=== PATIENT | female | born 1940 | race Caucasian/White ===

== ENCOUNTER → 2018-07-25 | Outpatient (REF) | payer OTHER, MEDICARE ==
[2018-07-25 14:30] LABS: BASO % 0.4 % (0.0-1.0); EOS # 0.3 10^3/uL (0.0-0.50); EOS % 3.2 % (0.0-3.0); HEMATOCRIT 39.2 % (36.0-47.0); HEMOGLOBIN 11.8 g/dl (12.0-15.5); IMMATURE GRANULOCYTE % 0.2 % (0-3.0); LYMPH # 2.2 10^3/uL (1.5-4.5); LYMPH % 23.5 % (24.0-44.0); MEAN CORPUSCULAR HEMOGLOBIN 27.3 pg (27.0-33.0); MEAN CORPUSCULAR HGB CONC 30.1 g/dl (32.0-36.5); MEAN CORPUSCULAR VOLUME 90.7 fl (80.0-96.0); MONO # 0.6 10^3/uL (0.0-0.8); MONO % 6.9 % (0.0-5.0); NEUTROPHILS % 65.8 % (36.0-66.0); PLATELET COUNT, AUTOMATED 261 10^3/uL (150-450); RED BLOOD COUNT 4.32 10^6/uL (4.00-5.40); RED CELL DISTRIBUTION WIDTH 15.6 % (11.5-14.5); WHITE BLOOD COUNT 9.1 10^3/uL (4.0-10.0)
[2018-07-25 15:01] LABS: ERYTHROCYTE SEDIMENTATION RATE 69 mm/hr (0-30)
[2018-07-25 15:12] LABS: ESTIMATED AVERAGE GLUCOSE 131 MG/DL (60-110); HEMOGLOBIN A1c 6.2 %
[2018-07-25 15:39] LABS: ALBUMIN 3.3 GM/DL (3.2-5.2); ALBUMIN/GLOBULIN RATIO 0.65 (1.00-1.93); ALKALINE PHOSPHATASE 84 U/L (45-117); ALT/SGPT 14 U/L (12-78); ANION GAP 11 MEQ/L (8-16); AST/SGOT 43 U/L (7-37); BILIRUBIN,TOTAL 0.4 MG/DL (0.2-1.0); BLOOD UREA NITROGEN 20 MG/DL (7-18); CALCIUM LEVEL 9.1 MG/DL (8.8-10.2); CARBON DIOXIDE LEVEL 29 MEQ/L (21-32); CHLORIDE LEVEL 102 MEQ/L (98-107); CREATININE FOR GFR 0.79 MG/DL (0.55-1.30); FOLATE > 24.0 NG/ML; GLOMERULAR FILTRATION RATE > 60.0 (>39); GLUCOSE, FASTING 84 MG/DL (70-100); POTASSIUM SERUM 4.1 MEQ/L (3.5-5.1); SODIUM LEVEL 142 MEQ/L (136-145); THYROID STIMULATING HORMONE 0.722 uIU/ML (0.358-3.740); TOTAL PROTEIN 8.4 GM/DL (6.4-8.2); VITAMIN B12 LEVEL > 2000.0 PG/ML
[2018-07-27 11:30] LABS: ALBUMIN 3.57 GM/DL (3.29-5.55); ALBUMIN % 42.5 % (55.8-66.1); ALPHA-1-GLOBULIN % 5.9 % (2.9-4.9); ALPHA-2-GLOBULINS % 16.7 % (7.1-11.8); BETA-1-GLOBULINS % 7.2 % (4.7-7.2); BETA-2-GLOBULINS % 7.1 % (3.2-6.5); GAMMA GLOBULIN % 20.6 % (11.1-18.8)
[2018-07-27 11:31] LABS: GAMMA GLOBULINS 1.73 GM/DL (0.65-1.58)
== END ==
LOC: M LABNEURO 13:16
DX: G62.9 Polyneuropathy, unspecified (principal); R25.1 Tremor, unspecified
CPT/HCPCS: 82525

== ENCOUNTER → 2019-04-10 | Outpatient (REF) | payer OTHER, MEDICARE | LOC: M LAB LCGH 14:36 | PROVIDERS: ATTEND Family Medicine | DX: L85.9 Epidermal thickening, unspecified (principal) ==

== ENCOUNTER → 2019-10-12 | Outpatient (REF) | LOC: M LAB LCGH 13:55 | PROVIDERS: ATTEND Orthopaedic Surgery | DX: M24.541 Contracture, right hand (principal); M06.341 Rheumatoid nodule, right hand ==

== ENCOUNTER → 2023-04-21 | Outpatient (REF) | payer OTHER | LOC: M SFHCWOUN 17:42 | PROVIDERS: ATTEND Surgery | DX: L81.9 Disorder of pigmentation, unspecified (principal); L97.222 Non-pressure chronic ulcer of left calf with fat layer exposed; L98.8 Other specified disorders of the skin and subcutaneous tissue ==

== ENCOUNTER 2023-06-23 16:28 | Inpatient (IN) | payer OTHER ==
[~2023-06-23] VITALS: Ht 165.1 cm; Wt 116.2 kg
[2023-06-23] MEDS ORDERED: ACETAMINOPHEN TAB 650MG DOSE (2X325MG) PO PRN (19:30)
[2023-06-23 19:45] VITALS: BP 137/75; TEMP 98.1; O2SAT 95
[2023-06-23 20:25] LABS: HEMATOCRIT 35.5 % (36.0-47.0); HEMOGLOBIN 10.7 g/dl (12.0-15.5); MEAN CORPUSCULAR HEMOGLOBIN 29.9 pg (27.0-33.0); MEAN CORPUSCULAR HGB CONC 30.1 g/dl (32.0-36.5); MEAN CORPUSCULAR VOLUME 99.2 fl (80.0-96.0); PLATELET COUNT, AUTOMATED 248 10^3/uL (150-450); RED BLOOD COUNT 3.58 10^6/uL (4.00-5.40); WHITE BLOOD COUNT 8.4 10^3/uL (4.0-10.0)
[2023-06-23 20:39] LABS: RSV AMPLIFICATION NEGATIVE (NEGATIVE)
[2023-06-23 20:49] LABS: INR 1.13; PROTHROMBIN TIME 14.2 SECONDS (12.5-14.5)
[2023-06-23 20:57] LABS: PROCALCITONIN 0.41 ng/ml
[2023-06-23] MEDS ORDERED: GABAPENTIN 300 MG CAP PO ONE (21:00)
[2023-06-23] MEDS ORDERED: PERCOCET 5MG/325MG TAB PO ONE (21:00)
[2023-06-23] MEDS ORDERED: SINEMET 25-100 MG TAB PO ONE (21:00)
[2023-06-23 21:48] LABS: ALBUMIN 2.7 G/DL (3.2-5.2); ALKALINE PHOSPHATASE 71 U/L (46-116); ALT/SGPT < 9 U/L (7.0-40); AST/SGOT 20 U/L (<34); BILIRUBIN,TOTAL 0.2 MG/DL (0.3-1.2); BLOOD UREA NITROGEN 29 MG/DL (9-23); CALCIUM LEVEL 9.2 MG/DL (8.3-10.6); CARBON DIOXIDE LEVEL 30 MMOL/L (20-31); CHLORIDE LEVEL 106 MMOL/L (98-107); CREATININE FOR GFR 1.56 MG/DL (0.55-1.30); GLOMERULAR FILTRATION RATE 33.7 (>32); GLUCOSE, FASTING 120 MG/DL (74-106); MAGNESIUM LEVEL 2.4 MG/DL (1.8-2.4); POTASSIUM SERUM 4.6 MMOL/L (3.5-5.1); SODIUM LEVEL 143 MMOL/L (136-145); TOTAL PROTEIN 6.9 G/DL (5.7-8.2)
[2023-06-23] MEDS ORDERED: ROPI3TAB18 PO (22:48)
[2023-06-23] MEDS ORDERED: VITMTA PO (22:48)
[2023-06-23] MEDS ORDERED: FERR1TAB8 PO (22:48)
[2023-06-23] MEDS ORDERED: TURM500T PO (22:48)
[2023-06-23] MEDS ORDERED: ATOR1TAB21 PO (22:48)
[2023-06-23] MEDS ORDERED: OXYC10TA3 PO (22:48)
[2023-06-23] MEDS ORDERED: SUCR1ORA2 PO (22:48)
[2023-06-23] MEDS ORDERED: LEFL1TAB4 PO (22:48)
[2023-06-23] MEDS ORDERED: OMEP1CAP73 PO (22:48)
[2023-06-23] MEDS ORDERED: FOLI1TAB11 PO (22:48)
[2023-06-23] MEDS ORDERED: VITA500T41 PO (22:48)
[2023-06-23] MEDS ORDERED: RHOP0.02 OU (22:48)
[2023-06-23] MEDS ORDERED: IBUP-1764 PO (22:48)
[2023-06-23] MEDS ORDERED: NEUR600T PO (22:48)
[2023-06-23] MEDS ORDERED: CARB25TA9 PO (22:48)
[2023-06-23] MEDS ORDERED: HOME MED LIST COMPLETE! XX SCH (22:50)
[2023-06-23 23:44] LABS: APPEARANCE, URINE HAZY (CLEAR); BACTERIA, URINE AUTO 2+ (NEGATIVE); BILIRUBIN, URINE AUTO NEGATIVE (NEGATIVE); BLOOD, URINE BLOOD 1+ (NEGATIVE); COLOR, URINE YELLOW (YELLOW); GLUCOSE, URINE (UA) AUTO NEGATIVE (NEGATIVE); KETONE, URINE AUTO TRACE mg/dL (NEGATIVE); LEUKOCYTE ESTERASE, URINE AUTO 2+ (NEGATIVE); NITRITE, URINE AUTO POSITIVE (NEGATIVE); PROTEIN, URINE AUTO 2+ mg/dL (NEGATIVE); RBC, URINE AUTO 6 /HPF (0-3); SPECIFIC GRAVITY URINE AUTO 1.019 (1.002-1.035); SQUAMOUS EPITHELIAL CELL UR AU 1 /HPF (0-6); UROBILINOGEN, URINE AUTO 0.2 mg/dL (0.0-2.0); WBC, URINE AUTO 66 /HPF (0-3)
[2023-06-23 23:48] LABS: OSMOLALITY URINE 452 MOSM/KG (50-1400)
[2023-06-23 23:56] LABS: SODIUM,RANDOM URINE 67 MMOL/L
[2023-06-23] MEDS ORDERED: LR 1,000 ML IV SCH (23:59)
[2023-06-24] VITALS (9 sets, daily range): BP systolic 131–158; BP diastolic 53–98; TEMP 97.5–98.2; O2SAT 90–100
[2023-06-24 00:01] LABS: TOTAL PROTEIN,RANDOM URINE 59.2 MG/DL (0.0-14.0)
[2023-06-24] MEDS: SINEMET 25-100 MG TAB PO SCH ×5 (05:16→21:10)
[2023-06-24] MEDS: PERCOCET 5MG/325MG TAB PO PRN ×3 (05:16→18:46)
[2023-06-24] MEDS: SUCRALFATE SUSP 1GM/10ML UD PO SCH ×2 (08:56→21:10)
[2023-06-24] MEDS: OMEPRAZOLE 20MG CAP PO SCH (08:57)
[2023-06-24] MEDS: MULTIVITAMINS/MINERALS THERAP 1 TAB PO SCH (08:57)
[2023-06-24] MEDS: CYANOCOBALAMIN 500 MCG TAB PO SCH (08:58)
[2023-06-24] MEDS: rOPINIRole 1MG TAB PO SCH ×3 (08:59→21:10)
[2023-06-24] MEDS: GABAPENTIN 300 MG CAP PO SCH ×3 (08:59→21:10)
[2023-06-24] MEDS: ATORVASTATIN 20 MG TAB PO SCH (08:59)
[2023-06-24] MEDS: FERROUS SULFATE 325MG TAB PO SCH (08:59)
[2023-06-24] MEDS: FOLIC ACID 1MG TAB PO SCH (08:59)
[2023-06-24] MEDS ORDERED: NS 0.45% 1,000 ML IV ONE (09:00)
[2023-06-24] MEDS: PIPERACILLIN/TAZOBACTAM SOD 2.25 GM in D5W MINI-BAG PLUS 50 ML IV SCH ×3 (11:57→21:10)
[2023-06-24] MEDS ORDERED: ONDANSETRON 4MG 2ML VIAL As Ordered ONE (15:52)
[2023-06-24] MEDS ORDERED: LIDOCAINE 2% 100MG/5ML SDV (FOR ANES.) As Ordered ONE (15:52)
[2023-06-24] MEDS ORDERED: propofoL 200 MG/20 ML VIAL As Ordered ONE (15:52)
[2023-06-24] MEDS ORDERED: ROCURONIUM BROMIDE 50MG/5ML VIAL As Ordered ONE (15:52)
[2023-06-24] MEDS ORDERED: fentaNYL 250 MCG/5 ML INJECTION As Ordered ONE (15:53)
[2023-06-24] MEDS ORDERED: MIDAZOLAM INJ 2MG/2ML VIAL As Ordered ONE (15:53)
[2023-06-24] MEDS ORDERED: ONDANSETRON 4MG 2ML VIAL IV PRN (17:15)
[2023-06-24] MEDS ORDERED: LR 1,000 ML IV SCH (17:15)
[2023-06-24] MEDS ORDERED: HYDROMORPHONE HCL 0.5 MG/ 0.5 ML SYRINGE IV PRN (17:15)
[2023-06-24] MEDS ORDERED: oxyCODONE 5MG TAB PO PRN (17:15)
[2023-06-24] MEDS ORDERED: fentaNYL 100 MCG/2 ML INJECTION IV PRN (17:15)
[2023-06-24] MEDS ORDERED: SUGAMMADEX SODIUM 500 MG/5 ML VIAL (BRIDION) As Ordered ONE (17:16)
[2023-06-24] MEDS ORDERED: hydrALAZINE 20MG/ML 1ML VIAL As Ordered ONE (17:43)
[2023-06-24] MEDS ORDERED: hydrALAZINE 20MG/ML 1ML VIAL IV PRN (17:45)
[2023-06-24] MEDS: DIMETHICONE 2% OINTMENT(VANICREAM) 70GM TUBE TOP SCH (21:10)
[2023-06-25 00:20] VITALS: BP 133/68; TEMP 97.5; O2SAT 97
[2023-06-25] MEDS: PIPERACILLIN/TAZOBACTAM SOD 2.25 GM in D5W MINI-BAG PLUS 50 ML IV SCH ×4 (03:48→21:04)
[2023-06-25 05:13] VITALS: BP 122/57; TEMP 97.9; O2SAT 98
[2023-06-25] MEDS: SINEMET 25-100 MG TAB PO SCH ×5 (05:36→21:03)
[2023-06-25 06:51] LABS: BASO % 0.2 % (0.0-1.0); HEMATOCRIT 36.1 % (36.0-47.0); HEMOGLOBIN 11.1 g/dl (12.0-15.5); LYMPH # 1.1 10^3/uL (1.5-5.0); LYMPH % 11.1 % (24.0-44.0); MEAN CORPUSCULAR HGB CONC 30.7 g/dl (32.0-36.5); MEAN CORPUSCULAR VOLUME 97.6 fl (80.0-96.0); MONO # 0.2 10^3/uL (0.0-0.8); MONO % 2.4 % (2.0-8.0); NEUTROPHILS # 8.1 10^3/uL (1.5-8.5); PLATELET COUNT, AUTOMATED 243 10^3/uL (150-450); WHITE BLOOD COUNT 9.4 10^3/uL (4.0-10.0)
[2023-06-25 07:16] LABS: CALCIUM LEVEL 8.9 MG/DL (8.3-10.6); CREATININE FOR GFR 1.14 MG/DL (0.55-1.30); GLOMERULAR FILTRATION RATE 48.5 (>32); POTASSIUM SERUM 4.8 MMOL/L (3.5-5.1)
[2023-06-25] MEDS: SUCRALFATE SUSP 1GM/10ML UD PO SCH ×2 (09:12→21:04)
[2023-06-25] MEDS: ATORVASTATIN 20 MG TAB PO SCH (09:13)
[2023-06-25] MEDS: rOPINIRole 1MG TAB PO SCH ×3 (09:13→21:03)
[2023-06-25] MEDS: MULTIVITAMINS/MINERALS THERAP 1 TAB PO SCH (09:13)
[2023-06-25] MEDS: OMEPRAZOLE 20MG CAP PO SCH (09:13)
[2023-06-25] MEDS: FOLIC ACID 1MG TAB PO SCH (09:13)
[2023-06-25] MEDS: GABAPENTIN 300 MG CAP PO SCH ×3 (09:13→21:03)
[2023-06-25] MEDS: PERCOCET 5MG/325MG TAB PO PRN ×2 (09:14→15:12)
[2023-06-25] MEDS: FERROUS SULFATE 325MG TAB PO SCH (09:14)
[2023-06-25] MEDS: CYANOCOBALAMIN 500 MCG TAB PO SCH (09:14)
[2023-06-25] MEDS: DIMETHICONE 2% OINTMENT(VANICREAM) 70GM TUBE TOP SCH ×2 (09:20→21:04)
[2023-06-25 09:53] VITALS: BP 141/62; TEMP 97.9; O2SAT 92
[2023-06-25 14:00] VITALS: BP 152/54; TEMP 97.9; O2SAT 96
[2023-06-25] MEDS: POLYVINYL ALCOHOL OPHTH SOLN 15ML (LIQUITEARS) OU PRN (17:51)
[2023-06-25 20:36] VITALS: BP 142/85; TEMP 97.7; O2SAT 92
[2023-06-26 01:49] VITALS: BP 110/71; TEMP 98.2; O2SAT 92
[2023-06-26] MEDS: PIPERACILLIN/TAZOBACTAM SOD 2.25 GM in D5W MINI-BAG PLUS 50 ML IV SCH ×2 (03:52→10:40)
[2023-06-26] MEDS: SINEMET 25-100 MG TAB PO SCH ×5 (05:39→20:06)
[2023-06-26] MEDS: PERCOCET 5MG/325MG TAB PO PRN ×3 (05:40→17:34)
[2023-06-26 05:58] VITALS: BP 152/74; TEMP 98.6; O2SAT 95
[2023-06-26] MEDS: SUCRALFATE SUSP 1GM/10ML UD PO SCH ×2 (09:49→20:05)
[2023-06-26] MEDS: GABAPENTIN 300 MG CAP PO SCH ×3 (09:50→20:05)
[2023-06-26] MEDS: ATORVASTATIN 20 MG TAB PO SCH (09:50)
[2023-06-26] MEDS: rOPINIRole 1MG TAB PO SCH ×3 (09:50→20:05)
[2023-06-26] MEDS: FOLIC ACID 1MG TAB PO SCH (09:50)
[2023-06-26] MEDS: FERROUS SULFATE 325MG TAB PO SCH (09:51)
[2023-06-26] MEDS: CYANOCOBALAMIN 500 MCG TAB PO SCH (09:51)
[2023-06-26] MEDS: DIMETHICONE 2% OINTMENT(VANICREAM) 70GM TUBE TOP SCH ×2 (09:51→20:06)
[2023-06-26] MEDS: OMEPRAZOLE 20MG CAP PO SCH (09:51)
[2023-06-26] MEDS: MULTIVITAMINS/MINERALS THERAP 1 TAB PO SCH (09:51)
[2023-06-26] MEDS: POLYVINYL ALCOHOL OPHTH SOLN 15ML (LIQUITEARS) OU PRN (09:52)
[2023-06-26] MEDS ORDERED: ISOVUE-370 76% 100ML VIAL As Ordered ONE (12:17)
[2023-06-26 14:00] VITALS: BP 135/70; TEMP 98.9; O2SAT 95
[2023-06-26] MEDS: PIPERACILLIN/TAZOBACTAM SOD 3.375 GM in D5W MINI-BAG PLUS 50 ML IV SCH ×2 (16:42→21:01)
[2023-06-26 21:59] VITALS: BP 153/70; TEMP 97.9; O2SAT 96
[2023-06-27] MEDS: PIPERACILLIN/TAZOBACTAM SOD 3.375 GM in D5W MINI-BAG PLUS 50 ML IV SCH ×2 (03:56→08:36)
[2023-06-27] MEDS: SINEMET 25-100 MG TAB PO SCH ×3 (05:38→12:38)
[2023-06-27] MEDS ORDERED: LevoFLOXacin 750 MG TABLET PO SCH (06:00)
[2023-06-27 06:05] LABS: CALCIUM LEVEL 8.4 MG/DL (8.3-10.6); CREATININE FOR GFR 0.96 MG/DL (0.55-1.30); GLOMERULAR FILTRATION RATE 59.1 (>32)
[2023-06-27 06:38] VITALS: BP 142/76; TEMP 97.9; O2SAT 94
[2023-06-27] MEDS: ATORVASTATIN 20 MG TAB PO SCH (08:36)
[2023-06-27] MEDS: OMEPRAZOLE 20MG CAP PO SCH (08:36)
[2023-06-27] MEDS: FERROUS SULFATE 325MG TAB PO SCH (08:36)
[2023-06-27] MEDS: GABAPENTIN 300 MG CAP PO SCH (08:36)
[2023-06-27] MEDS: CYANOCOBALAMIN 500 MCG TAB PO SCH (08:36)
[2023-06-27] MEDS: rOPINIRole 1MG TAB PO SCH (08:36)
[2023-06-27] MEDS: SUCRALFATE SUSP 1GM/10ML UD PO SCH (08:37)
[2023-06-27] MEDS: DIMETHICONE 2% OINTMENT(VANICREAM) 70GM TUBE TOP SCH (08:37)
[2023-06-27] MEDS: MULTIVITAMINS/MINERALS THERAP 1 TAB PO SCH (08:37)
[2023-06-27] MEDS: FOLIC ACID 1MG TAB PO SCH (08:37)
[2023-06-27] MEDS: PERCOCET 5MG/325MG TAB PO PRN (08:39)
[2023-06-27] MEDS ORDERED: MOM 30ML SUSPENSION UDC PO ONE (13:10)
[2023-06-27] MEDS ORDERED: BISACODYL 10MG SUPP PR ONE (13:10)
[2023-06-27] MEDS ORDERED: SENN1TAB41 PO (13:22)
[2023-06-27] MEDS ORDERED: MIRA3350 PO (13:22)
[2023-06-27] MEDS ORDERED: LEVO1TAB40 PO (13:22)
[2023-06-27] MEDS ORDERED: PROBCAP14 PO (13:23)
[2023-06-27] MEDS ORDERED: SENOKOT S TAB PO SCH (13:30)
[2023-06-27 14:00] VITALS: BP 150/74; TEMP 98.1; O2SAT 97
== END 2023-06-27 15:14 | disposition home or self-care (01) | DRG 571 ==
LOC: M MSPAV 19:28
PROVIDERS: ADMIT Family Medicine; ATTEND Internal Medicine Nephrology
PROC: 0JB90ZZ Excision of Buttock Subcutaneous Tissue and Fascia, Open Approach (ICD-10-PCS; principal; 2023-06-24 16:30)
DX: L97.222 Non-pressure chronic ulcer of left calf with fat layer exposed (principal); Z68.41 Body mass index [BMI] 40.0-44.9, adult; I87.2 Venous insufficiency (chronic) (peripheral); I10 Essential (primary) hypertension; E78.5 Hyperlipidemia, unspecified; G20 Parkinson's disease; I70.201 Unspecified atherosclerosis of native arteries of extremities, right leg; D64.9 Anemia, unspecified; M06.9 Rheumatoid arthritis, unspecified; K21.9 Gastro-esophageal reflux disease without esophagitis; G25.81 Restless legs syndrome; G31.84 Mild cognitive impairment of uncertain or unknown etiology; R00.1 Bradycardia, unspecified; I77.1 Stricture of artery; E66.01 Morbid (severe) obesity due to excess calories; K80.20 Calculus of gallbladder without cholecystitis without obstruction; K59.00 Constipation, unspecified; K76.0 Fatty (change of) liver, not elsewhere classified; I89.0 Lymphedema, not elsewhere classified; B96.5 Pseudomonas (aeruginosa) (mallei) (pseudomallei) as the cause of diseases classified elsewhere; Z79.899 Other long term (current) drug therapy; Z79.891 Long term (current) use of opiate analgesic; Z88.6 Allergy status to analgesic agent